=== PATIENT | female | born 1960 | race African-American/Black ===

== ENCOUNTER 2017-02-05 16:42 | Emergency (ER) | payer OTHER, MEDICAID ==
[~2017-02-05] VITALS: Ht 170.2 cm; Wt 65.8 kg
[2017-02-05] MEDS ORDERED: TETANUS-DIPTH-ACEL PERTUSSIS 0.5ML SYRG IM ONE (17:30)
[2017-02-05 17:41] VITALS: BP 139/77
== END 2017-02-05 18:19 | disposition home or self-care (01) ==
LOC: EDBD 16:42 → ER 16:42
DX: S01.511A Laceration without foreign body of lip, initial encounter (principal); E86.0 Dehydration; M25.511 Pain in right shoulder; M25.552 Pain in left hip; W18.39XA Other fall on same level, initial encounter; Y93.89 Activity, other specified; Y92.89 Other specified places as the place of occurrence of the external cause; Y99.8 Other external cause status
CPT/HCPCS: 12013; 70450; 70486; 73030; 73502; 90471; 90715